=== PATIENT | male | born 1995 | race Caucasian/White ===

== ENCOUNTER 2017-06-05 19:02 | Emergency (ER) | payer OTHER ==
[~2017-06-05] VITALS: Ht 167.6 cm; Wt 90.7 kg
[~2017-06-05 19:02] MED LIST: DARVOCET N 1001 TAB PO; FLEXERIL10 MG PO; HYDROCODONE BIT1 T11 PO; MOTRIN800 MG PO; NKHM; ROBAXIN500 MG PO; VOLTAREN50 M1 PO
[2017-06-05] MEDS ORDERED: CLINDAMYCIN HC300 MG PO (21:42)
== END 2017-06-05 21:52 | disposition home or self-care (01) ==
LOC: ED 19:02
DX: S61.012A Laceration without foreign body of left thumb without damage to nail, initial encounter (principal); S61.211A Laceration without foreign body of left index finger without damage to nail, initial encounter; W23.0XXA Caught, crushed, jammed, or pinched between moving objects, initial encounter; Y93.89 Activity, other specified; Y92.89 Other specified places as the place of occurrence of the external cause; Y99.9 Unspecified external cause status

== ENCOUNTER → 2019-07-15 | Outpatient (CLI) | payer BC, OTHER ==
[~2019-07-15] MED LIST changes: +CLINDAMYCIN HC300 MG PO
== END | disposition home or self-care (01) ==
LOC: US 10:24
DX: K80.20 Calculus of gallbladder without cholecystitis without obstruction (principal); K76.0 Fatty (change of) liver, not elsewhere classified; R19.7 Diarrhea, unspecified; R14.2 Eructation; R10.11 Right upper quadrant pain

== ENCOUNTER → 2019-07-18 | Outpatient (CLI) | payer BC, OTHER | END | disposition home or self-care (01) | LOC: RAD 10:34 | DX: R10.11 Right upper quadrant pain (principal) ==

== ENCOUNTER → 2019-11-09 | Outpatient (CLI) | payer BC, OTHER ==
[~2019-11-09] MED LIST changes: +RANITIDINE 150 MG PO
== END | disposition home or self-care (01) ==
LOC: COVID19 00:20
DX: Z01.818 Encounter for other preprocedural examination (principal); Z11.59 Encounter for screening for other viral diseases

== ENCOUNTER → 2019-11-16 | Day surgery (SDC) | payer BC, OTHER ==
[~2019-11-16] VITALS: Ht 167.6 cm; Wt 90.7 kg
[2019-11-16 08:25] VITALS: BP 115/75
[2019-11-16 09:55] VITALS: BP 140/53
[2019-11-16 10:11] VITALS: BP 111/66
[2019-11-16 10:27] VITALS: BP 114/70
== END | disposition home or self-care (01) ==
LOC: SDC 11-13 14:00
DX: R19.7 Diarrhea, unspecified (principal); R10.9 Unspecified abdominal pain; K21.9 Gastro-esophageal reflux disease without esophagitis; K44.9 Diaphragmatic hernia without obstruction or gangrene; K29.50 Unspecified chronic gastritis without bleeding; J45.909 Unspecified asthma, uncomplicated; Z79.899 Other long term (current) drug therapy; Z83.3 Family history of diabetes mellitus